=== PATIENT | female | born 1955 | race Caucasian/White ===

== ENCOUNTER 2024-08-19 15:01 | Emergency (ER) | payer MEDICARE, BC ==
[~2024-08-19] VITALS: Ht 160 cm; Wt 75.0 kg
[2024-08-19 15:36] LABS: BILIRUBIN,URINE NEGATIVE (Neg); CLARITY,URINE CLEAR (Clear); COLOR,URINE STRAW (Yellow); GLUCOSE, URINE 100 mg/dl (Neg); KETONES,URINE NEGATIVE (Neg); LEUKOCYTE ESTERASE ,URINE SMALL (Neg); NITRITES, URINE NEGATIVE (Neg); OCCULT BLOOD,URINE NEGATIVE (Neg); PROTEIN,URINE NEGATIVE (Neg); UROBILINOGEN,URINE 0.2 E.U/dL (0.2-1.0)
[2024-08-19 15:42] LABS: UA COLLECTION TYPE CLN CATCH MIDSTREAM
[2024-08-19 15:44] LABS: BACTERIA,URINE FEW /HPF (Neg); MUCUS STRANDS FEW /LPF (Neg); SQUAMOUS EPITHELIAL CELL,UR FEW /LPF (FEW)
[2024-08-19 16:03] LABS: BASOPHILS # (AUTO) 0.2 X10'3 (0-0.2); BASOPHILS % (AUTO) 1.8 % (0-1); EOSINOPHILS # (AUTO) 0.3 X10'3 (0-0.9); EOSINOPHILS % (AUTO) 3.6 % (0-6); HEMATOCRIT 37.2 % (35.0-45.0); HEMOGLOBIN 12.5 g/dl (12.0-16.0); LYMPHOCYTES # (AUTO) 3.1 X10'3 (1.1-4.8); LYMPHOCYTES % (AUTO) 32.3 % (21-51); MEAN CORPUSCULAR HEMOGLOBIN 32.1 PG (27.0-31.0); MEAN CORPUSCULAR HGB CONC 33.6 g/dL (33.0-36.5); MEAN CORPUSCULAR VOLUME 95.5 FL (78-98); MONOCYTES # (AUTO) 1.2 X10'3 (0-0.9); MONOCYTES % (AUTO) 12.9 % (2-12); NEUTROPHILS # (AUTO) 4.8 X10'3 (1.8-7.7); NEUTROPHILS % (AUTO) 49.4 % (42-75); PLATELET COUNT 355 X10'3 (140-440); RED BLOOD COUNT 3.89 X10'6 (4.20-5.60); RED CELL DISTRIBUTION WIDTH 13.8 % (11.5-14.5); WHITE BLOOD COUNT 9.7 X10'3 (4.5-11.0)
[2024-08-19 16:28] LABS: ALANINE AMINOTRANSFERASE 26 U/L (12-78); ALBUMIN 3.5 G/DL (3.4-5.0); ALKALINE PHOSPHATASE 134 IU/L (46-116); ANION GAP 12 (8-16); ASPARTATE AMINO TRANSFERASE 20 U/L (10-37); BILIRUBIN,TOTAL 0.4 MG/DL (0.1-1.0); BLOOD UREA NITROGEN 21 MG/DL (7-18); BUN/CREATININE RATIO 12.2 (10.0-20.0); CALCIUM 8.4 MG/DL (8.5-10.1); CHLORIDE 102 MMOL/L (99-107); CREATININE 1.72 MG/DL (0.40-0.90); GLUCOSE 179 MG/DL (70-104); LIPASE 10 U/L (16-77); POTASSIUM 3.2 MMOL/L (3.5-5.1); SODIUM 135 MMOL/L (135-145); TOTAL CARBON DIOXIDE 21.5 MMOL/L (24-32); TOTAL PROTEIN 6.9 G/DL (6.4-8.2); eCRCL 26 ML/MIN; eGFR 29 ML/MIN
[2024-08-19 17:44] VITALS: TEMP 98.1
[2024-08-19] MEDS: morphine 4 MG/ML inj SYRINge IV ONE ×3 (21:16→23:34)
[2024-08-19] MEDS: normal saline 1000ml 1,000 ML IV ONE (21:42)
[2024-08-19] MEDS: CefTRIAXone/D5W-Rocephin 1gm 50 ML IV ONE (21:43)
[2024-08-19] MEDS: ondansetron/PF 4mg/2ml inj IV ONE (21:44)
[2024-08-19] MEDS ORDERED: morphine 4 MG/ML inj SYRINge IV ONE (23:05)
[2024-08-19] MEDS ORDERED: PHEN-786 PO (23:25)
[2024-08-19] MEDS ORDERED: CEFP200T13 PO (23:25)
[2024-08-19] MEDS ORDERED: ONDA-243 PO (23:25)
[2024-08-20 00:11] VITALS: BP 133/68; PULSE 79; RESP 16; O2SAT 98
== END 2024-08-20 00:14 | disposition home or self-care (01) ==
LOC: ER 15:02
DX: N39.0 Urinary tract infection, site not specified (principal); Z88.1 Allergy status to other antibiotic agents
CPT/HCPCS: 36415; 80053; 81001; 83690; 85025; 87088; 96365; 96375; 96376; 99284; J0696; J2270; J2405; J7030; 87077; 87186